=== PATIENT | male | born 1935 | race Caucasian/White ===

== ENCOUNTER 2017-08-01 11:32 | Emergency (ER) | payer MEDICARE ==
[~2017-08-01] VITALS: Ht 165.1 cm; Wt 72.6 kg
--- NOTE | 2017-08-01 13:35 | Diagnostic Imaging Report ---
Portable chest x-ray CPT code 85496 INDICATION: Cough COMPARISON: None FINDINGS: Frontal view of the chest obtained at 1242 hours. The cardiac silhouette is enlarged. Ectatic the aorta is ectatic. The pulmonary vascular marking are normal. The lungs demonstrate no mass or infiltrate. The costophrenic angles are sharp. There is no pneumothorax. The osseous structures are intact and normal in morphology. IMPRESSION: 1. Cardiomegaly. No vascular congestion. 2. No acute pulmonary process. Signed by: Dr. Jerald Blake MD on 08/01/2017 1:31 PM
== END 2017-08-01 15:26 | disposition home or self-care (01) ==
LOC: ER 11:32
DX: R05 Cough (principal); B34.9 Viral infection, unspecified; F03.90 Unspecified dementia, unspecified severity, without behavioral disturbance, psychotic disturbance, mood disturbance, and anxiety; E11.9 Type 2 diabetes mellitus without complications; Z86.73 Personal history of transient ischemic attack (TIA), and cerebral infarction without residual deficits
CPT/HCPCS: 71010; 87400; 99283

== ENCOUNTER 2017-11-22 21:12 | Inpatient (IN) | payer MEDICARE ==
[~2017-11-22] VITALS: Ht 165.1 cm; Wt 69.4 kg
--- OUTSIDE RECORDS SUMMARY | 2017-11-22 21:15 | XMS REPORT ---
Author [facility] Address Unknown Phone Unavailable Care Team Providers Care Agency Director Name Role Phone IVY PRIETO Unavailable Unavailable Problems This patient has no known problems. Allergies, Adverse Reactions, Alerts This patient has no known allergies or adverse reactions. Medications This patient has no known medications. Results Test Description Test Time Test Comments Text Results Atomic Results Result Comments CHEST SINGLE (PORTABLE) [address] [address] Patient Name: CHRISTINA RAMOS MR #: [id number] : 1935 Age/Sex: 82/M Req #: [id number] Adm Physician: Ordered by: IVY PRIETO MD Report # : [id number] Location: ER Room/Bed: Procedure: [id number] DX/CHEST SINGLE (PORTABLE) Exam Date: 08/01/17 Exam Time: 1244 REPORT STATUS: Signed Portable chest x-ray CPT code 98100 INDICATION: Cough COMPARISON: None FINDINGS: Frontal view of the chest obtained at 1242 hours. The cardiac silhouette is enlarged. Ectatic the aorta is ectatic. The pulmonary vascular marking are normal. The lungs demonstrate no mass or infiltrate. The costophrenic angles are sharp. There is no pneumothorax. The osseous structures are intact and normal in morphology. IMPRESSION: 1. Cardiomegaly. No vascular congestion. 2. No acute pulmonary process. Signed by: Dr. Cecy Vinson MD on 08/01/2017 1:31 PM Dictated By: CECY VINSON MD [id number] Transcribed By: NELL on 08/01/17 1331 COPY TO: IVY PRIETO MD
[2017-11-22] MEDS ORDERED: METOPROLOL SUCC50 MG PO (21:46)
[2017-11-22] MEDS ORDERED: DORZOLAMIDE-TIM10 ML OP (21:46)
[2017-11-22] MEDS ORDERED: SIMVASTATIN20 MG PO (21:46)
[2017-11-22] MEDS ORDERED: HYDROCHLOROTHIA25 MG PO (21:46)
[2017-11-22] MEDS ORDERED: OMEPRAZOLE40 MG PO (21:46)
[2017-11-22] MEDS ORDERED: AZO CRANBERRY1 EAC1 PO (21:46)
[2017-11-22] MEDS ORDERED: NAMENDA10 MG PO (21:46)
[2017-11-22] MEDS ORDERED: ASPIR 8181 MG PO (21:46)
[2017-11-22] MEDS ORDERED: LATANOPROST2.5 ML OP (21:46)
[2017-11-22] MEDS ORDERED: LISINOPRIL20 MG PO (21:46)
[2017-11-22] MEDS ORDERED: TETANUS/DIPHTHERIA TOX ADULT 0.5 ML SYR IM ONE (22:15)
[2017-11-22 22:25] LABS: BASOPHILS # (AUTO) 0.1 (0.0-0.1); BASOPHILS % 0.5 % (0.0-1.0); EOSINOPHILS # (AUTO) 0.1 (0.0-0.4); EOSINOPHILS % 0.7 % (0.0-6.0); HEMATOCRIT 48.3 % (38.2-49.6); HEMOGLOBIN 16.8 g/dL (14.0-18.0); LYMPHOCYTES # (AUTO) 1.3 (1.0-3.2); LYMPHOCYTES % 8.3 % (18.0-39.1); MEAN CORPUSCULAR HEMOGLOBIN 33.3 pg (28-32); MEAN CORPUSCULAR HGB CONC 34.8 g/dL (31-35); MEAN CORPUSCULAR VOLUME 95.6 fL (81-99); MONOCYTES # (AUTO) 0.8 (0.2-0.8); NEUTROPHILS # (AUTO) 13.2 (2.1-6.9); NEUTROPHILS % 85.1 % (38.7-80.0); PLATELET COUNT 263 x10e3/uL (140-360); RED BLOOD COUNT 5.05 x10e6/uL (4.3-5.7); RED CELL DISTRIBUTION WIDTH 13.2 % (11.7-14.4)
--- NOTE | 2017-11-22 22:29 | Diagnostic Imaging Report ---
History:Fall, unresponsive Comparison studies:None Technique: Axial images were obtained from the skull base to the vertex. Coronal and sagittal images reconstructed from the axial data. Intravenous contrast: None Findings: Scalp/skull: No abnormalities. Extra-axial spaces: No masses. No fluid collections. Brain sulci: Moderately prominent. Ventricles: Moderate compensatory dilatation. No hydrocephalus. Parenchyma: Ill-defined confluent hypodensities in the supratentorial white matter are small vessel ischemic changes. A cavitated lacunar insult is centered in the right anterior thalamus. No masses, hemorrhage, acute or chronic cortical vascular insults. Sellar/suprasellar region: No abnormalities. Craniocervical junction: Patent foramen magnum. No Chiari one malformation. Incidental findings: Coarse atherosclerotic calcifications in the carotid siphons and intracranial vertebral arteries.. Impression: No acute abnormalities. Chronic findings: 1. Moderate generalized volume loss. 2. Diffuse supratentorial white matter small vessel ischemic changes. 3. Focal lacunar insult in the right anterior thalamus Signed by: Dr. Silas Parkinson M.D. on 11/22/2017 10:25 PM
[2017-11-22 22:31] LABS: INR 1.07; PROTHROMBIN TIME 13.1 seconds (11.9-14.5)
--- NOTE | 2017-11-22 22:31 | Diagnostic Imaging Report ---
History: Fall, unresponsive Comparison studies: None Technique: Axial images were obtained through the cervical region.. Coronal and sagittal images reconstructed from the axial data.. Intravenous contrast: None Findings: Airway: Patent. Fractures: None. Soft tissues: No gross abnormalities. Atlantoaxial articulation: Intact. Alignment: Normal lordosis. No scoliosis. Cervicomedullary junction: No abnormalities. The foramen magnum is patent. Vertebrae: No infection or neoplasm. Degenerative changes: Moderate at the atlantoaxial articulation. Mildly degenerated discs from C4 to T1. Moderate facet arthrosis on the right from C2 to C6. Foraminal stenosis, mild right at C2-3, severe right and C3-4 mild right at C4-5 due to facet and uncovertebral arthrosis. No significant spinal canal stenosis. Incidental atherosclerotic calcifications in the carotid bulbs IMPRESSION: 1. No acute abnormalities. 2. Cannot adequately evaluate for ligament, spinal cord and or vascular abnormalities. 3. Degenerative changes as described. Signed by: Dr. Silas Parkinson M.D. on 11/22/2017 10:28 PM
[2017-11-22 22:32] LABS: PARTIAL THROMBOPLASTIN TIME 22.4 seconds (23.8-35.5)
--- NOTE | 2017-11-22 22:36 | Diagnostic Imaging Report ---
EXAMINATION: CHEST SINGLE (PORTABLE) INDICATION: Status post fall, fever COMPARISON: None FINDINGS: TUBES and LINES: None. LUNGS: Lungs are not well inflated. Lungs are clear. There is no evidence of pneumonia or pulmonary edema. PLEURA: No pleural effusion or pneumothorax. HEART AND MEDIASTINUM: The cardiomediastinal silhouette is unremarkable. BONES AND SOFT TISSUES: No acute osseous lesion. Soft tissues are unremarkable. UPPER ABDOMEN: No free air under the diaphragm. IMPRESSION: No acute thoracic abnormality. Signed by: Dr. Chaitanya Pearson M.D. on 11/22/2017 10:32 PM
--- NOTE | 2017-11-22 22:37 | Diagnostic Imaging Report ---
PELVIS AP 1-2 VIEWS HISTORY: Status post fall, pain COMPARISON: None FINDINGS: Bones: No displaced fracture. Osseous alignment is within normal limits. Joints: The joint spaces are well-maintained. Soft tissues: Vascular calcifications noted in the pelvis. IMPRESSION: No acute radiographic abnormality. Signed by: Dr. Chaitanya Pearson M.D. on 11/22/2017 10:34 PM
[2017-11-22 22:42] LABS: ALBUMIN 3.9 g/dL (3.5-5.0); ALBUMIN/GLOBULIN RATIO 0.9 (0.8-2.0); ANION GAP 13.8 mmol/L (8-16); CALCIUM 10.3 mg/dL (8.4-10.2); CREATININE, SERUM 1.19 mg/dL (0.72-1.25); MAGNESIUM 1.9 MG/DL (1.3-2.1); POTASSIUM 3.8 mmol/L (3.5-5.1)
[2017-11-22 22:54] LABS: B-TYPE NATRIURETIC PEPTIDE2 132.1 pg/mL (0-100)
[2017-11-22 23:02] LABS: CREATINE KINASE MB 2.9 ng/mL (0-5.0); THYROID STIMULATING HORMONE 1.897 uIU/mL (0.350-4.940)
[2017-11-23 00:01] LABS: BILIRUBIN,URINE NEGATIVE (NEGATIVE); CLARITY,URINE CLEAR (CLEAR); COLOR,URINE YELLOW (YELLOW); KETONES,URINE NEGATIVE (NEGATIVE); LEUKOCYTE ESTERASE ,URINE NEGATIVE (NEGATIVE); NITRITE,URINE NEGATIVE (NEGATIVE); PROTEIN,URINE DIPSTICK NEGATIVE (NEGATIVE); URINE UROBILINOGEN 0.2 mg/dL (0.2 - 1)
[2017-11-23 00:15] LABS: BACTERIA,URINE RARE /HPF; EPITHELIAL CELLS,URINE RARE /LPF; RBC,URINE 21-50 /HPF (0-5); WBC,URINE (MAN) 0-5 /HPF (0-5)
[2017-11-23] MEDS ORDERED: VANCOMYCIN 1GM/NS 250 ML 250 ML IV STA (00:52)
[2017-11-23] MEDS ORDERED: ONDANSETRON HCL 4 MG ORAL DISINTEGRATING TAB PO PRN (01:45)
[2017-11-23] MEDS ORDERED: ACETAMINOPHEN 325 MG TAB PO PRN (01:45)
[2017-11-23] MEDS: CEFTRIAXONE SOD 1 GM VIAL IV SCH ×2 (02:10→13:28)
[2017-11-23] MEDS: SODIUM CHLORIDE 0.9% 1000ML 1,000 ML IV SCH ×3 (02:17→21:03)
[2017-11-23 06:21] LABS: BASOPHILS # (AUTO) 0.1 (0.0-0.1); BASOPHILS % 0.6 % (0.0-1.0); EOSINOPHILS # (AUTO) 0.2 (0.0-0.4); EOSINOPHILS % 1.1 % (0.0-6.0); HEMATOCRIT 39.7 % (38.2-49.6); HEMOGLOBIN 13.9 g/dL (14.0-18.0); LYMPHOCYTES # (AUTO) 2.9 (1.0-3.2); LYMPHOCYTES % 20.4 % (18.0-39.1); MEAN CORPUSCULAR HEMOGLOBIN 33.1 pg (28-32); MEAN CORPUSCULAR VOLUME 94.5 fL (81-99); MONOCYTES % 7.1 % (4.4-11.3); NEUTROPHILS # (AUTO) 10.1 (2.1-6.9); NEUTROPHILS % 70.5 % (38.7-80.0); PLATELET COUNT 225 x10e3/uL (140-360); RED CELL DISTRIBUTION WIDTH 13.1 % (11.7-14.4)
[2017-11-23 06:36] LABS: ALANINE AMINOTRANSFERASE 10 IU/L (0-55); ALBUMIN/GLOBULIN RATIO 0.9 (0.8-2.0); ALKALINE PHOSPHATASE 57 IU/L (40-150); ANION GAP 11.3 mmol/L (8-16); BLOOD UREA NITROGEN 21 mg/dL (7-26); BUN/CREATININE RATIO 24 (6-25); CALCIUM 8.9 mg/dL (8.4-10.2); CARBON DIOXIDE 25 mmol/L (22-29); CHLORIDE 111 mmol/L (98-107); CREATINE KINASE 146 IU/L (30-200); CREATININE, SERUM 0.87 mg/dL (0.72-1.25); EST GLOMERULAR FILTRATION RATE > 60 ML/MIN (60-); GLUCOSE 104 mg/dL (74-118); POTASSIUM 3.3 mmol/L (3.5-5.1); SODIUM 144 mmol/L (136-145)
[2017-11-23] MEDS ORDERED: FAMOTIDINE 20 MG/2 ML VIAL IV SCH (09:00)
[2017-11-23] MEDS ORDERED: ASPIRIN 81 MG ENTERIC COATED PO SCH (09:00)
[2017-11-23] MEDS ORDERED: LORAZEPAM INJ 2 MG/ML VIAL IV ONE (10:30)
[2017-11-23 11:50] VITALS: BP 142/65
[2017-11-23 12:00] VITALS: BP 142/65
[2017-11-23 12:06] VITALS: BP 142/65
[2017-11-23] MEDS ORDERED: LORAZEPAM INJ 2 MG/ML VIAL IV STA (12:19)
--- NOTE | 2017-11-23 13:50 | Diagnostic Imaging Report ---
EXAMINATION: MRI of the brain without contrast. HISTORY: Altered mental status, not very responsive, syncope, LOC COMPARISON: Head CT on 11/22/2017 TECHNIQUE: Sagittal T2; axial DWI, T2, FLAIR, T1-IR, T2 gradient echo; coronal FLAIR. IMAGE QUALITY: Very limited due to motion artifact in all sequences. FINDINGS: Parenchyma: 1. Small focal area of restricted diffusion in superior aspect of the left lentiform nucleus is consistent with acute ischemic lacunar infarct. 2. Severe confluent periventricular, way radiata and centrum semiovale white matter hyperintensities, most likely nonspecific chronic medical vascular ischemic changes. 3. Multiple small chronic lacunar infarcts in the bilateral caudate nucleus, lentiform nuclei, posterior limb of the internal capsules, thalami, paramedian sharath and bilateral cerebellar hemispheres. 4. Multiple small GRE hypointense foci in the bilateral basal ganglia, thalami, brainstem, cerebellum and few scattered peripheral lobar are likely related to microhemorrhages from chronic hypertension. 5. No mass, hemorrhage, acute or chronic infarcts. Skull: Unremarkable. Vessels: Expected flow voids present in the major arteries and dural sinuses. Extra-axial spaces: No abnormal signal intensity or mass effect. Brain volume: Moderate generalized volume loss Ventricles: No hydrocephalus or displacement. Foramen magnum: Unremarkable. Sella: Unremarkable. Paranasal / mastoid sinuses: No significant inflammatory disease. IMPRESSION: 1. Acute ischemic lacunar infarct in the left lentiform nucleus. 2. Severe chronic microvascular ischemic changes. 3. Multiple chronic lacunar infarct versus detail above. 4. Moderate generalized and bone windows. Signed by: Dr. Mila Sparrow M.D. on 11/23/2017 1:46 PM
[2017-11-23 14:52] VITALS: BP 149/70
[2017-11-23 15:29] LABS: CREATINE KINASE MB 3.8 ng/mL (0-5.0)
[2017-11-23 15:54] VITALS: BP 147/64
[2017-11-23] MEDS: MEMANTINE 10 MG TAB PO SCH (16:21)
[2017-11-23] MEDS: DORZOLAMIDE/TIMOLOL (OPTH SOL) 10 ML DRPETTE OP SCH (16:21)
[2017-11-23 20:00] VITALS: BP 133/58
[2017-11-23] MEDS: SIMVASTATIN 20 MG TAB PO SCH ×2 (21:00→21:04)
[2017-11-23] MEDS: FAMOTIDINE 20 MG TAB PO SCH ×2 (21:00→21:04)
[2017-11-23] MEDS: LATANOPROST(OPTH) 2.5 ML BTL OP SCH (21:04)
[2017-11-24] VITALS: BP 116/58
[2017-11-24] MEDS: CEFTRIAXONE SOD 1 GM VIAL IV SCH ×2 (01:20→12:50)
[2017-11-24] MEDS: SODIUM CHLORIDE 0.9% 1000ML 1,000 ML IV SCH ×2 (03:42→07:45)
[2017-11-24 06:50] LABS: CHOL/HDL RATIO 3.3 (3.9-4.7)
[2017-11-24 08:18] VITALS: BP 143/65
[2017-11-24] MEDS: LISINOPRIL 20 MG TAB PO SCH (08:30)
[2017-11-24] MEDS: CLOPIDOGREL BISULFATE 75 MG TAB PO SCH (08:30)
[2017-11-24] MEDS: FAMOTIDINE 20 MG TAB PO SCH ×2 (08:30→20:07)
[2017-11-24] MEDS: MEMANTINE 10 MG TAB PO SCH ×2 (08:30→17:00)
[2017-11-24] MEDS: HYDROCHLOROTHIAZIDE 25 MG TAB PO SCH (08:30)
[2017-11-24] MEDS: PANTOPRAZOLE SOD 40 MG TABEC PO SCH (08:30)
[2017-11-24] MEDS: METOPROLOL SUCCINATE 50 MG TAB XL PO SCH (08:30)
[2017-11-24] MEDS ORDERED: LATANOPROST(OPTH) 2.5 ML BTL OP SCH (09:00)
[2017-11-24] MEDS ORDERED: ASPIRIN 81 MG CHEW TAB PO SCH (09:00)
[2017-11-24] MEDS: DORZOLAMIDE/TIMOLOL (OPTH SOL) 10 ML DRPETTE OP SCH ×2 (09:14→16:50)
[2017-11-24 09:59] VITALS: BP 143/65
--- NOTE | 2017-11-24 15:13 | Consultation ---
DATE OF CONSULTATION: November 23, 2017 NEUROLOGY CONSULT NOTE HISTORY OF PRESENT ILLNESS: Mr. Monroy is unable to provide any history. The history is obtained from his son-in-law and grandson, who are at the bedside, and review of the electronic medical records. Mr. Monroy is an 82-year-old man with past medical history significant for hypertension, hyperlipidemia, a prior stroke with residual dysarthria, and possible expressive aphasia, and advanced dementia, who presented to [facility] on the evening of November 22, 2017 following a syncopal event. Per the patient's son-in-law, at approximately 8:15 PM on November 22, 2017, he was helping the patient into bed. The patient suddenly fainted, falling forward towards the left. He hit his head on a carpeted floor. Mr. Monroy's son-in-law pulled him onto the bed. Once the patient was on the bed, his son-in-law found him unresponsive. Within less than 1 minute, the patient did regain consciousness. According to Mr. Monroy's son-in-law, there was no stiffening or shaking of the arms or legs, no foaming saliva, and no tongue biting. Mr. Monroy is incontinent of urine and stool at baseline. Mr. Monroy was brought to and admitted to [facility] for further evaluation and treatment. While in the emergency center and again on the floor, the patient was noted to have worsening confusion. As part of an evaluation, the patient underwent a MRI of the brain without contrast on November 23, 2017, which demonstrated an acute lacunar stroke in the left lentiform nucleus. A neurology consultation was ordered for further evaluation and treatment. REVIEW OF SYSTEMS: Unable to obtain as the patient's verbalization is severely limited. PAST MEDICAL HISTORY: Hypertension, hyperlipidemia, gastroesophageal reflux disease, prior stroke with residual dysarthria, possible expressive aphasia, and possible right hemiparesis, dementia, reportedly of the Alzheimer's type. PAST SURGICAL HISTORY: None. PAST HOSPITALIZATIONS: The patient was previously hospitalized for a stroke. He was recently hospitalized at [facility] for an upper respiratory illness. The patient's son-in-law is not aware of other hospitalizations. FAMILY HISTORY: The patient's paternal and maternal grandparents are . Medical history are unknown. The patient's mother and father are . Their medical histories are unknown. The patient had multiple brothers and sisters, all of whom are . Their medical histories are unknown. Mr. Monroy has 1 daughter and 2 sons. All of his children are alive and reportedly healthy. SOCIAL HISTORY: Patient is . He graduated high school before joining the [employer]. Mr. Monroy is retired, but previously worked for a [employer] company. The patient's son-in-law does not report current or prior tobacco, alcohol or recreational drug use. HOME MEDICATIONS 1. Aspirin 81 mg by mouth daily. 2. Cranberry extract/vitamin C 1 tablet by mouth daily. 3. Dorzolamide/timolol 2 drops in each eye twice daily. 4. Hydrochlorothiazide 12.5 mg by mouth daily. 5. Latanoprost 2.5 mL 1 drop in each eye daily. 6. Lisinopril 20 mg by mouth daily. 7. Memantine 10 mg by mouth twice daily. 8. Metoprolol 50 mg by mouth daily. 9. Omeprazole 40 mg by mouth daily. 10. Simvastatin 20 mg by mouth at bedtime daily. ALLERGIES: NO KNOWN DRUG ALLERGIES. NO KNOWN FOOD ALLERGIES. NO KNOWN ALLERGIES TO LATEX. NO KNOWN ALLERGIES TO IODINE OR OTHER CONTRAST MATERIALS. PHYSICAL EXAMINATION VITAL SIGNS: Height 65 inches, weight 150 lbs, BMI 25.0 kg per meter squared. Blood pressure 147/64 mmHg. Pulse 55 beats per minute. Respiratory rate 18 breaths per minute. Oxygen saturation 97% on room air. GENERAL: The patient is awake and alert, does not appear distressed. HEENT: Normocephalic, atraumatic. Pupils are equal, round, and reactive to light. Moist mucous membranes. NECK: Supple. No appreciable thyromegaly. No appreciable carotid bruits. CARDIOVASCULAR: S1, S2, regular rate and rhythm. No murmurs, rubs or gallops. RESPIRATORY: Clear to auscultation bilaterally. No wheezes, rhonchi or rales. EXTREMITIES: The skin is warm and dry. No clubbing, cyanosis or edema. The posterior tibial and dorsalis pedis pulses are 1+ and symmetric. SKIN: Abrasions over the forehead and nose. NEUROLOGIC MEMORY/ATTENTION: The patient is awake and alert, oriented to person only. CRANIAL NERVES: Cranial nerve I--not tested. Cranial nerve II, III, IV, --pupils are equal and round, react briskly to light (4 mm to 2 mm), extraocular movements intact, no nystagmus. Right eye esotropia at baseline. Cranial nerve V--sensation to light touch and pinprick is intact in the bilateral V1 through V3 distributions. Strength in the temporalis and masseter muscles is within normal limits. Cranial VII--flattening of the right nasolabial fold. Facial movements are symmetric. Cranial nerve VIII--hearing is diminished to finger rub bilaterally. Cranial nerve IX, X--the soft palate elevates equally and symmetrically. Cranial nerve XI--normal strength of the bilateral sternocleidomastoid and trapezius muscles. Cranial creatine XII--the tongue protrudes midline and moves symmetrically from side to side. STRENGTH: Bulk is diminished. The patient is able to maintain both arms against gravity for more than 10 seconds each. The patient is able to maintain both legs against gravity for more than 5 seconds each. Tone is increased in the right arm. DTRs: Deep tendon reflexes are 2+ at the left triceps, biceps, and brachioradialis. Deep tendon reflexes are 3+ at the right triceps, biceps, brachioradialis, bilateral patellas and bilateral Achilles. Plantar responses are flexor bilaterally. Absent clonus. SENSATION: Sensation is intact to light touch and pinprick in both arms and both legs. CEREBELLAR: Tnsisw-bifa-qqvjji and heel-sheldon movements are intact without dysmetria or other impairment. GAIT: Deferred. SPEECH: Spontaneous speech is very limited. There is moderate dysarthria with probable expressive aphasia. No receptive aphasia appreciated. Repetition is intact. INVOLUNTARY MOVEMENTS: None. PRONATOR DRIFT: As per motor exam. LABORATORY DATA: Sodium 144, potassium 3.3, chloride 111, carbon dioxide 25, anion gap 11.3, BUN 21, creatinine 0.87, estimated GFR greater than 60, BUN to creatinine ratio 24. Glucose 104. Lactic acid 18.7, calcium 8.9. Total bilirubin 0.6, AST 18, ALT 10, alkaline phosphatase 57, total protein 6.3, albumin 3.0, globulin 3.3, albumin to globulin ratio 0.9. Creatine kinase 113, 146, 151. CK-MB 2.90, 2.70, 380. Troponin-I 0.005, 0.007, 0.004. B-natriuretic peptide 132.1. TSH 1.897. The CBC with differential and platelets revealed a white blood cell count of 14.3 with 70.5% neutrophils, 20.4% lymphocytes, 7.1% monocytes, 1.1% eosinophils, and 0.6% basophils. The hemoglobin and hematocrit 13.9 and 39.7, respectively. Platelet count is 225,000. From November 22, 2017, PT 13.1, INR 1.07, PTT 22.4. Urinalysis from November 22, 2017 reveals trace of blood with a 21 to 50 red blood cells. Influenza A and B negative. Group A streptococcus negative. DIAGNOSTIC STUDIES 1. Electrocardiogram on November 22, 2017: Normal sinus rhythm at 92 beats per minute. 2. Pelvic x-ray on November 22, 2017: No acute radiographic abnormality. 3. Chest x-ray on November 22, 2017: No acute thoracic abnormality. 4. CT of the cervical spine without contrast on November 22, 2017: No acute abnormalities. Degenerative disk disease. 5. CT of the brain without contrast November 22, 2017: No acute abnormalities. Chronic findings include moderate generalized volume loss, diffuse supratentorial white matter small vessel ischemic changes, focal lacunar infarct in the right anterior thalamus. 6. MRI of the brain without contrast November 23, 2017: Acute lacunar infarct in the left lentiform nucleus. Multiple chronic lacunar infarcts. Nsiebulf-ug-[id number] chronic small vessel ischemic disease. Moderate diffuse cerebral atrophy. ASSESSMENT AND PLAN: Mr. Monroy is an 82-year-old man with an extensive past medical history admitted to [facility] status post a syncopal event and with worsening confusion. As part of his evaluation, the patient underwent magnetic resonance imaging of the brain without contrast which revealed an acute lacunar infarct in the left lentiform nucleus. The patient's neurological examination is significant for hyperreflexia of the right arm and both legs and very limited spontaneous speech with moderate dysarthria and probable expressive aphasia. The patient's laboratory data and diagnostic studies have been reviewed and are documented above. Mr. Monroy has a metabolic encephalopathy caused by his underlying dementia which, based on his history, is in the late stages. Contributing to the metabolic encephalopathy/worsening confusion is the fact the patient is away from his normal environment and routine. The patient has experienced a recent stroke, which contributes to his worsening confusion. Lastly, the patient is being evaluated for an underlying infection which, if present, would cause worsening confusion as well. RECOMMENDATIONS 1. Lipid panel and hemoglobin A1c. 2. Echocardiogram. 3. Bilateral carotid artery ultrasound with Doppler. 4. Discontinue aspirin. Prescribe Plavix 75 mg by mouth daily for stroke prophylaxis. 5. Allow permissive hypertension pending the results of the bilateral carotid artery ultrasound with Doppler. 6. Continue the patient's home medications of simvastatin 20 mg by mouth at bedtime daily. Once the results of the lipid panel are known, adjustments may be made to this medication. 7. Speech and physical therapy consultations will be ordered. 8. The patient is receiving Pepcid 20 mg by mouth twice daily for GI prophylaxis. 9. Lovenox 40 mg subcutaneously daily will be prescribed for DVT prophylaxis. 10. To further evaluate the patient's metabolic encephalopathy, additional blood work will be ordered (ammonia, vitamin B12, RPR). The results of the patient's infectious disease workup will be followed. Continue treatment with the patient's home medication of memantine 10 mg by mouth twice daily. 11. Utilize environmental cues to limit the occurrence of delirium. This includes turning on the lights and television during the day. The light and television should be turned off at night when the patient should be sleeping. The date, day of the week, month, and year should be written on the dry erase board in the patient's room daily. The names of the patient's doctors, nurses, and other important medical personnel should be written on the dry erase board daily as well. Any expected procedures or consultations should be written on the dry erase board. 12. Defer treatment of the remaining medical comorbidities to the primary and other services. Thank you for this consultation. I will continue to follow this patient while he remains in the hospital. TIME SPENT: 70 minutes. Job#: [id number] CQ [id number]
[2017-11-24 15:53] VITALS: BP 139/65
[2017-11-24] MEDS: ENOXAPARIN SOD INJ 40 MG/0.4 ML SYR SC SCH (16:50)
[2017-11-24 19:10] VITALS: BP 176/80
[2017-11-24 19:42] VITALS: BP 176/80
[2017-11-24] MEDS: LATANOPROST(OPTH) 2.5 ML BTL OP SCH (20:07)
[2017-11-24] MEDS: SIMVASTATIN 20 MG TAB PO SCH (20:07)
[2017-11-24] MEDS: MORPHINE SULFATE 2 MG/ML SYR IV PRN (23:42)
[2017-11-25] VITALS (7 sets, daily range): BP systolic 135–191; BP diastolic 65–86
[2017-11-25] MEDS: CEFTRIAXONE SOD 1 GM VIAL IV SCH ×2 (00:49→13:30)
[2017-11-25] MEDS: MORPHINE SULFATE 2 MG/ML SYR IV PRN (05:31)
[2017-11-25 07:13] LABS: BASOPHILS # (AUTO) 0.1 (0.0-0.1); EOSINOPHILS # (AUTO) 0.5 (0.0-0.4); EOSINOPHILS % 5.9 % (0.0-6.0); HEMATOCRIT 41.5 % (38.2-49.6); HEMOGLOBIN 14.4 g/dL (14.0-18.0); LYMPHOCYTES # (AUTO) 1.9 (1.0-3.2); LYMPHOCYTES % 24.4 % (18.0-39.1); MEAN CORPUSCULAR HEMOGLOBIN 32.1 pg (28-32); MEAN CORPUSCULAR HGB CONC 34.7 g/dL (31-35); MEAN CORPUSCULAR VOLUME 92.6 fL (81-99); MONOCYTES # (AUTO) 0.8 (0.2-0.8); MONOCYTES % 10.2 % (4.4-11.3); NEUTROPHILS # (AUTO) 4.6 (2.1-6.9); PLATELET COUNT 221 x10e3/uL (140-360); RED BLOOD COUNT 4.48 x10e6/uL (4.3-5.7); RED CELL DISTRIBUTION WIDTH 12.8 % (11.7-14.4)
[2017-11-25 07:46] LABS: ALANINE AMINOTRANSFERASE 10 IU/L (0-55); ALBUMIN 2.9 g/dL (3.5-5.0); ALBUMIN/GLOBULIN RATIO 0.9 (0.8-2.0); ALKALINE PHOSPHATASE 51 IU/L (40-150); ANION GAP 11.3 mmol/L (8-16); BLOOD UREA NITROGEN 14 mg/dL (7-26); BUN/CREATININE RATIO 15 (6-25); CALCIUM 8.9 mg/dL (8.4-10.2); CARBON DIOXIDE 24 mmol/L (22-29); CHLORIDE 108 mmol/L (98-107); CREATININE, SERUM 0.93 mg/dL (0.72-1.25); EST GLOMERULAR FILTRATION RATE > 60 ML/MIN (60-); GLUCOSE 88 mg/dL (74-118); POTASSIUM 3.3 mmol/L (3.5-5.1); SODIUM 140 mmol/L (136-145)
[2017-11-25] MEDS: CLOPIDOGREL BISULFATE 75 MG TAB PO SCH (10:00)
[2017-11-25] MEDS: FAMOTIDINE 20 MG TAB PO SCH ×2 (10:00→20:45)
[2017-11-25] MEDS: LISINOPRIL 20 MG TAB PO SCH (10:00)
[2017-11-25] MEDS: METOPROLOL SUCCINATE 50 MG TAB XL PO SCH (10:00)
[2017-11-25] MEDS: MEMANTINE 10 MG TAB PO SCH ×2 (10:00→20:42)
[2017-11-25] MEDS: DORZOLAMIDE/TIMOLOL (OPTH SOL) 10 ML DRPETTE OP SCH ×2 (10:00→20:38)
[2017-11-25] MEDS: HYDROCHLOROTHIAZIDE 25 MG TAB PO SCH (10:00)
[2017-11-25] MEDS: PANTOPRAZOLE SOD 40 MG TABEC PO SCH (10:00)
[2017-11-25] MEDS ORDERED: POTASSIUM CHLORIDE 10 MEQ TABCR PO ONE (12:00)
[2017-11-25] MEDS: AMLODIPINE BESYLATE 5 MG TAB PO SCH (16:17)
[2017-11-25] MEDS: ENOXAPARIN SOD INJ 40 MG/0.4 ML SYR SC SCH (18:00)
[2017-11-25] MEDS: SIMVASTATIN 20 MG TAB PO SCH (20:45)
[2017-11-25] MEDS: LATANOPROST(OPTH) 2.5 ML BTL OP SCH (20:47)
[2017-11-26] VITALS: BP 145/68
[2017-11-26] MEDS: CEFTRIAXONE SOD 1 GM VIAL IV SCH ×2 (00:51→13:22)
[2017-11-26 04:00] VITALS: BP 148/71
[2017-11-26 07:39] VITALS: BP 154/71
[2017-11-26] MEDS: DORZOLAMIDE/TIMOLOL (OPTH SOL) 10 ML DRPETTE OP SCH (10:00)
[2017-11-26] MEDS: METOPROLOL SUCCINATE 50 MG TAB XL PO SCH (10:00)
[2017-11-26] MEDS: MEMANTINE 10 MG TAB PO SCH (10:00)
[2017-11-26] MEDS: LISINOPRIL 20 MG TAB PO SCH (10:00)
[2017-11-26] MEDS: HYDROCHLOROTHIAZIDE 25 MG TAB PO SCH (10:00)
[2017-11-26] MEDS: AMLODIPINE BESYLATE 5 MG TAB PO SCH (10:00)
[2017-11-26] MEDS: FAMOTIDINE 20 MG TAB PO SCH (10:00)
[2017-11-26] MEDS: CLOPIDOGREL BISULFATE 75 MG TAB PO SCH (10:00)
[2017-11-26] MEDS: PANTOPRAZOLE SOD 40 MG TABEC PO SCH (10:00)
[2017-11-26 10:15] VITALS: BP 165/81
== END 2017-11-26 14:35 | DRG 64 ==
LOC: ER 21:12 → ERHOLD 11-23 01:52 → MED/SURG 11-23 10:36
DX: I63.9 Cerebral infarction, unspecified (principal); G93.41 Metabolic encephalopathy; F05 Delirium due to known physiological condition; I50.22 Chronic systolic (congestive) heart failure; I69.354 Hemiplegia and hemiparesis following cerebral infarction affecting left non-dominant side; F03.91 Unspecified dementia, unspecified severity, with behavioral disturbance; R50.9 Fever, unspecified; E78.5 Hyperlipidemia, unspecified; I69.322 Dysarthria following cerebral infarction; I69.320 Aphasia following cerebral infarction; K21.9 Gastro-esophageal reflux disease without esophagitis; I11.0 Hypertensive heart disease with heart failure; W01.0XXA Fall on same level from slipping, tripping and stumbling without subsequent striking against object, initial encounter
CPT/HCPCS: 36415; 51700; 70450; 70551; 71045; 72125; 72170; 80053; 80061; 81001; 82140; 82550; 82553; 82607; 83036; 83518; 83605; 83735; 83880; 84443; 84484; 85025; 85610; 85730; 86592; 87040; 87070; 87086; 87400; 90471; 90714; 92523; 93005; 93306; 93880; 96360; 97139; 99284; J0696; J1650; J2060; J2270; J3370; J7030